=== PATIENT | male | born 1945 | race Hispanic/Latino ===

== ENCOUNTER 2018-04-23 01:52 | Emergency (ER) | payer MEDICARE ==
[2018-04-23 03:09] LABS: BASOPHILS % (AUTO) 0.4 % (0.0-5.0); EOSINOPHILS % (AUTO) 3.7 % (0.0-8.0); HEMATOCRIT 43.6 % (42-54); LYMPHOCYTES % (AUTO) 13.4 % (21.0-51.0); MEAN CORPUSCULAR HEMOGLOBIN 31.8 pg (27.0-33.0); MEAN CORPUSCULAR HGB CONC 33.8 g/dL (32.0-36.0); MONOCYTES % (AUTO) 7.2 % (3.0-13.0); NEUTROPHILS % (AUTO) 75.3 % (40.0-77.0); PLATELET COUNT (AUTO) 124 K/uL (130-400); RED BLOOD CELL COUNT(AUTO) 4.64 MIL/uL (4.50-6.20); RED CELL DISTRIBUTION WIDTH 12.9 % (11.0-15.5); WHITE BLOOD COUNT (AUTO) 7.5 K/uL (4.8-10.8)
[2018-04-23 03:16] LABS: CREATININE 0.9 mg/dL (0.5-1.5); POTASSIUM 3.9 mmol/L (3.5-5.1)
[2018-04-23 03:21] LABS: ALBUMIN 3.8 g/dL (3.5-5.0); TOTAL PROTEIN, SERUM 7.4 g/dL (6.0-8.3)
[2018-04-23] MEDS ORDERED: IPRATROPIUM/ALBUTEROL SULFATE 3 ML SOLUTION IH ONE (03:38)
[2018-04-23] MEDS ORDERED: METRONIDAZOLE 500 MG TABLET ONE (04:16)
== END 2018-04-23 04:49 | disposition home or self-care (01) ==
LOC: EDH 01:52
DX: J20.9 Acute bronchitis, unspecified (principal); I10 Essential (primary) hypertension; E11.9 Type 2 diabetes mellitus without complications
CPT/HCPCS: 36415; 71046; 80053; 85025; 87804; 94640

== ENCOUNTER 2018-07-02 22:36 | Emergency (ER) | payer MEDICARE ==
[2018-07-02 23:17] LABS: BASOPHILS % (AUTO) 0.7 % (0.0-5.0); HEMATOCRIT 44.2 % (42-54); LYMPHOCYTES % (AUTO) 34.5 % (21.0-51.0); MEAN CORPUSCULAR VOLUME 94.3 fL (79-99); MONOCYTES % (AUTO) 9.3 % (3.0-13.0); NEUTROPHILS % (AUTO) 51.5 % (40.0-77.0); PLATELET COUNT (AUTO) 166 K/uL (130-400); RED BLOOD CELL COUNT(AUTO) 4.69 MIL/uL (4.50-6.20); RED CELL DISTRIBUTION WIDTH 13.5 % (11.0-15.5); WHITE BLOOD COUNT (AUTO) 7.1 K/uL (4.8-10.8)
[2018-07-02] MEDS ORDERED: IPRATROPIUM/ALBUTEROL SULFATE 3 ML SOLUTION IH ONE (23:28)
[2018-07-02 23:29] LABS: CREATININE 0.9 mg/dL (0.5-1.5); POTASSIUM 3.8 mmol/L (3.5-5.1)
[2018-07-02 23:30] LABS: INR 0.96 (0.85-1.15); PARTIAL THROMBOPLASTIN TIME 27.1 SEC (26.3-35.5); PROTHROMBIN TIME 10.1 SEC (9.6-11.6)
[2018-07-02] MEDS ORDERED: DIPHENHYDRAMINE HCL 25 MG CAPSULE ONE (23:30)
[2018-07-02] MEDS ORDERED: BENZONATATE 100 MG CAPSULE PO ONE (23:30)
[2018-07-02] MEDS ORDERED: METHYLPREDNISOLONE SOD SUCC 40MG/ML 1ML ONE (23:30)
[2018-07-02 23:33] LABS: ALBUMIN 3.7 g/dL (3.5-5.0); BILIRUBIN,TOTAL 0.7 mg/dL (0.2-1.0); TOTAL PROTEIN, SERUM 7.3 g/dL (6.0-8.3)
[2018-07-02] MEDS ORDERED: DiphenhydrAMINE HCL 25 MG/10 ML ELIXIR UDCUP ONE (23:33)
[2018-07-02 23:39] LABS: B-TYPE NATRIURETIC PEPTIDE 13 pg/mL (0-100)
== END 2018-07-03 02:00 | disposition home or self-care (01) ==
LOC: EDH 22:36
DX: J20.9 Acute bronchitis, unspecified (principal); E11.9 Type 2 diabetes mellitus without complications; I10 Essential (primary) hypertension; J44.9 Chronic obstructive pulmonary disease, unspecified; Z87.891 Personal history of nicotine dependence; Z88.1 Allergy status to other antibiotic agents; Z88.8 Allergy status to other drugs, medicaments and biological substances
CPT/HCPCS: 36415; 71045; 80053; 82550; 83880; 84484; 85025; 85610; 85730; 93005; 94640; 96374; 99284; J2920; Q0163

== ENCOUNTER 2021-08-11 19:56 | Emergency (ER) | payer MEDICARE ==
[~2021-08-11] VITALS: Ht 170.2 cm; Wt 88.9 kg
[2021-08-11] MEDS ORDERED: ACETAMINOPHEN 500 MG TABLET ONE (22:53)
[2021-08-11] MEDS ORDERED: ALBUTEROL 0.083% 2.5 MG/3 ML INH IH ONE ×2 (23:30)
[2021-08-11] MEDS ORDERED: IPRATROPIUM/ALBUTEROL SULFATE 3 ML SOLUTION IH ONE (23:30)
[2021-08-11] MEDS ORDERED: PREDNISONE 20 MG TABLET PO ONE (23:30)
[2021-08-11 23:54] LABS: BASOPHILS % (AUTO) 0.4 % (0.0-5.0); EOSINOPHILS % (AUTO) 0.8 % (0.0-8.0); HEMATOCRIT 41.2 % (42-54); LYMPHOCYTES % (AUTO) 16.3 % (21.0-51.0); MEAN CORPUSCULAR HEMOGLOBIN 31.2 pg (27.0-33.0); MEAN CORPUSCULAR VOLUME 91.8 fL (79-99); MONOCYTES % (AUTO) 13.5 % (3.0-13.0); NEUTROPHILS % (AUTO) 68.6 % (40.0-77.0); PLATELET COUNT (AUTO) 121 K/uL (130-400); RED BLOOD CELL COUNT(AUTO) 4.49 MIL/uL (4.50-6.20); RED CELL DISTRIBUTION WIDTH 12.6 % (11.0-15.5)
[2021-08-12] MEDS ORDERED: AZITHROMYCIN 500MG+NS 250ML IVPB ONE
[2021-08-12] MEDS ORDERED: CEFTRIAXONE 1G VIAL IVP ONE
[2021-08-12 00:09] LABS: CREATININE 1.1 mg/dL (0.5-1.5); POTASSIUM 3.8 mmol/L (3.5-5.1)
[2021-08-12 00:14] LABS: ALBUMIN 3.5 g/dL (3.5-5.0); BILIRUBIN,TOTAL 0.7 mg/dL (0.2-1.0); TOTAL PROTEIN, SERUM 6.6 g/dL (6.0-8.3)
[2021-08-12 00:31] LABS: B-TYPE NATRIURETIC PEPTIDE 36 pg/mL (0-100)
[2021-08-12] MEDS ORDERED: PRED20TA3 PO (01:04)
[2021-08-12] MEDS ORDERED: BENZ-39 PO (01:04)
[2021-08-12] MEDS ORDERED: ALBU2.5V2 IH (01:04)
[2021-08-12] MEDS ORDERED: AZIT250T9 PO (01:04)
[2021-08-12] MEDS ORDERED: ALBU8.5H8 IH (01:04)
[2021-08-12 01:33] VITALS: BP 137/85
== END 2021-08-12 01:37 | disposition home or self-care (01) ==
LOC: EDH 19:56
DX: J44.1 Chronic obstructive pulmonary disease with (acute) exacerbation (principal); J10.1 Influenza due to other identified influenza virus with other respiratory manifestations; Z20.822 Contact with and (suspected) exposure to COVID-19; E11.9 Type 2 diabetes mellitus without complications; I10 Essential (primary) hypertension; Z79.52 Long term (current) use of systemic steroids; Z87.891 Personal history of nicotine dependence; Z96.653 Presence of artificial knee joint, bilateral
CPT/HCPCS: 36415; 71045; 80053; 83880; 84484; 85025; 87635; 87804 ×2; 93005; 94640 ×3; 96365; 96375; 99285; C9803; J0456; J0696

== ENCOUNTER 2022-10-12 11:37 | Emergency (ER) | payer MEDICARE, OTHER ==
[~2022-10-12] VITALS: Ht 167.6 cm; Wt 86.2 kg
[~2022-10-12 11:37] MED LIST: ALBU2.5V2 IH; ALBU8.5H8 IH; AZIT250T9 PO; BENZ-39 PO; PRED20TA3 PO
[2022-10-12 11:42] VITALS: BP 145/81
[2022-10-12] MEDS ORDERED: CEFTRIAXONE 1G VIAL IM ONE (12:30)
[2022-10-12] MEDS ORDERED: CLIN-141 PO (12:34)
== END 2022-10-12 12:52 | disposition home or self-care (01) ==
LOC: EDH 11:37
DX: R22.0 Localized swelling, mass and lump, head (principal); J44.9 Chronic obstructive pulmonary disease, unspecified; E11.9 Type 2 diabetes mellitus without complications; I10 Essential (primary) hypertension; Z79.52 Long term (current) use of systemic steroids
CPT/HCPCS: 99283; 96372; J0696

== ENCOUNTER 2023-09-04 18:42 | Observation (INO) | payer OTHER ==
[~2023-09-04] VITALS: Ht 170.2 cm; Wt 86.7 kg
[~2023-09-04 18:42] MED LIST changes: +CLIN-141 PO
[2023-09-04] MEDS: ACETAMINOPHEN 500 MG TABLET ONE (19:33)
[2023-09-04] MEDS: ACETAMINOPHEN 500 MG TABLET PO ONE (19:33)
[2023-09-04 20:10] LABS: APPEARANCE,URINE TURBID (CLEAR); BILIRUBIN,URINE NEGATIVE (NEGATIVE); COLOR,URINE YELLOW (YELLOW); GLUCOSE, URINE (UA) 200 mg/dL (NEGATIVE); KETONES,URINE NEGATIVE (NEGATIVE); LEUKOCYTE ESTERASE ,URINE 500 Leu/uL (NEGATIVE); NITRATE,URINE NEGATIVE (NEGATIVE); OCCULT BLOOD,URINE LARGE (NEGATIVE); PH,URINE 5.5 (5.0-8.0); PROTEIN,URINE 70 mg/dL (NEGATIVE); UROBILINOGEN,URINE 0.2 mg/dL (0.2-1.0)
[2023-09-04 20:15] LABS: ADD UA MICROSCOPIC YES
[2023-09-04 20:19] LABS: BACTERIA,URINE FEW /HPF (None Seen); NON-SQUAMOUS EPITHELIAL CELL 9 /HPF (0-2); RBC,URINE 26-50 /HPF (0-1); WBC CLUMP RARE /HPF (0-1); WBC,URINE >100 /HPF (0-1)
[2023-09-04] MEDS ORDERED: MORPHINE 2 MG SYG IVP ONE (23:00)
[2023-09-04] MEDS: 0.9%NACL 1000ML 1,983 ML IV ONE (23:02)
[2023-09-04 23:11] LABS: BASOPHILS # (AUTO) 0.03 K/uL (0.00-0.20); BASOPHILS % (AUTO) 0.3 % (0.0-5.0); EOSINOPHILS % (AUTO) 0.8 % (0.0-8.0); HEMATOCRIT 44.4 % (42-54); IMMATURE GRANULOCYTE ABSOLUTE 0.04 K/uL (0-1); LYMPHOCYTES # (AUTO) 2.1 K/uL (1.0-4.8); LYMPHOCYTES % (AUTO) 17.4 % (21.0-51.0); MEAN CORPUSCULAR HEMOGLOBIN 32.6 pg (27.0-33.0); MEAN CORPUSCULAR HGB CONC 35.4 g/dL (32.0-36.0); MEAN CORPUSCULAR VOLUME 92.3 fL (79-99); MONOCYTES # (AUTO) 1.2 K/uL (0.1-1.0); MONOCYTES % (AUTO) 10.3 % (3.0-13.0); NEUTROPHILS # (AUTO) 8.5 K/uL (1.8-7.7); NEUTROPHILS % (AUTO) 70.9 % (40.0-77.0); PLATELET COUNT (AUTO) 186 K/uL (130-400); RED BLOOD CELL COUNT(AUTO) 4.81 MIL/uL (4.50-6.20); RED CELL DISTRIBUTION WIDTH 12.4 % (11.0-15.5); WHITE BLOOD COUNT (AUTO) 11.9 K/uL (4.8-10.8)
[2023-09-04 23:23] LABS: SARS-CoV-2, RNA, NAAT NEGATIVE SARS CoV-2 (NEGATIVE)
[2023-09-04 23:25] LABS: INR <= 0.93 (0.85-1.15); PROTHROMBIN TIME 10.8 SEC (9.6-11.6)
[2023-09-04 23:27] LABS: INFLUENZA TYPE A Negative For Type A (NEGATIVE); INFLUENZA TYPE B Negative For Type B (NEGATIVE); PARTIAL THROMBOPLASTIN TIME 29.1 SEC (26.3-35.5)
[2023-09-04 23:29] LABS: ALBUMIN 3.5 g/dL (3.5-5.0); BILIRUBIN,TOTAL 0.9 mg/dL (0.2-1.0); CREATININE 1.3 mg/dL (0.5-1.3); POTASSIUM 3.8 mmol/L (3.5-5.1); TOTAL PROTEIN, SERUM 7.7 g/dL (6.0-8.3)
[2023-09-04 23:54] LABS: B-TYPE NATRIURETIC PEPTIDE 8 pg/mL (0-100)
[2023-09-05 01:31] VITALS: TEMP 97.9
[2023-09-05] MEDS: CEFTRIAXONE 1G VIAL IVPB ONE (02:57)
[2023-09-05] MEDS ORDERED: KCL 20 MEQ ERTAB PO PRN (03:30)
[2023-09-05] MEDS ORDERED: DEXTROSE 50%-WATER 50 ML DISP.SYRIN IV PRN (03:30)
[2023-09-05] MEDS ORDERED: ACETAMINOPHEN 325 MG TAB PO PRN ×2 (03:30)
[2023-09-05] MEDS ORDERED: ONDANSETRON 4MG INJ IV PRN (03:30)
[2023-09-05] MEDS ORDERED: POTASSIUM CHLORIDE 10% ELIXIR 20 MEQ/15 ML UDCUP PO PRN (03:30)
[2023-09-05] MEDS ORDERED: GLUCAGON 1MG KIT 1 MG ML IM PRN (03:30)
[2023-09-05] MEDS ORDERED: POTASSIUM CHLORIDE 20MEQ/100ML 100 ML IV PRN (03:30)
[2023-09-05] MEDS ORDERED: MAGNESIUM 2GM PREMIX 50ML 50 ML IV PRN (03:30)
[2023-09-05 03:48] VITALS: O2SAT 98
[2023-09-05] MEDS: 0.9%NACL 1000ML 1,000 ML IV SCH (04:24)
[2023-09-05 04:37] VITALS: BP 153/92; PULSE 83; RESP 20
[2023-09-05 04:38] LABS: BASOPHILS # (AUTO) 0.01 K/uL (0.00-0.20); BASOPHILS % (AUTO) 0.1 % (0.0-5.0); EOSINOPHILS # (AUTO) 0.11 K/uL (0.00-0.70); EOSINOPHILS % (AUTO) 1.2 % (0.0-8.0); HEMATOCRIT 38.4 % (42-54); IMMATURE GRANULOCYTE ABSOLUTE 0.03 K/uL (0-1); LYMPHOCYTES # (AUTO) 1.4 K/uL (1.0-4.8); LYMPHOCYTES % (AUTO) 15.2 % (21.0-51.0); MEAN CORPUSCULAR HEMOGLOBIN 31.8 pg (27.0-33.0); MEAN CORPUSCULAR HGB CONC 34.9 g/dL (32.0-36.0); MEAN CORPUSCULAR VOLUME 91.2 fL (79-99); MONOCYTES # (AUTO) 1.2 K/uL (0.1-1.0); MONOCYTES % (AUTO) 13.4 % (3.0-13.0); NEUTROPHILS # (AUTO) 6.2 K/uL (1.8-7.7); NEUTROPHILS % (AUTO) 69.8 % (40.0-77.0); PLATELET COUNT (AUTO) 165 K/uL (130-400); RED BLOOD CELL COUNT(AUTO) 4.21 MIL/uL (4.50-6.20); RED CELL DISTRIBUTION WIDTH 12.5 % (11.0-15.5)
[2023-09-05 05:06] LABS: ALBUMIN 2.9 g/dL (3.5-5.0); BILIRUBIN,TOTAL 0.4 mg/dL (0.2-1.0); CREATININE 1.2 mg/dL (0.5-1.3); POTASSIUM 3.8 mmol/L (3.5-5.1); THYROID STIMULATING HORMONE 2.7 uIU/mL (0.36-3.74); TOTAL PROTEIN, SERUM 6.6 g/dL (6.0-8.3)
[2023-09-05] MEDS ORDERED: IBUP200C5 PO (06:12)
[2023-09-05] MEDS ORDERED: METF-446 PO (06:12)
[2023-09-05] MEDS ORDERED: LISI1TAB51 PO (06:12)
[2023-09-05] MEDS ORDERED: [UNRECOGNIZED DRUG - OTHER] (06:12)
[2023-09-05] MEDS ORDERED: MILK175C5 PO (06:12)
[2023-09-05] MEDS ORDERED: METF-444 PO (06:34)
[2023-09-05] MEDS ORDERED: INSULIN HUMULIN R 100 UNIT/ML 3ML SQ SCH (07:30)
[2023-09-05] MEDS ORDERED: CEFTRIAXONE 1G VIAL 1 GM in 0.9%NACL 50ML 50 ML IV SCH (09:00)
[2023-09-05] MEDS ORDERED: LISINOPRIL 20 MG TABLET PO SCH (09:00)
[2023-09-05] MEDS ORDERED: HYDROCHLOROTHIAZIDE 25 MG TABLET PO SCH (09:00)
[2023-09-05] MEDS ORDERED: NON-FORMULARY MEDICATION 1 EACH (Lisinopril/Hydrochlorothiazide (Lisinopril-Hctz 20-12.5 m PO SCH (09:00)
[2023-09-05] MEDS ORDERED: FAMOTIDINE 20MG TAB PO SCH (09:00)
[2023-09-05] MEDS ORDERED: CEFTRIAXONE 1G VIAL IVPB SCH (15:00)
== END 2023-09-05 07:20 | disposition left against medical advice (07) ==
LOC: EDH 18:42 → EDHIP 09-05 03:19 → 3BH 09-05 04:28
PROVIDERS: ADMIT Hospitalist; ATTEND Hospitalist
DX: A41.9 Sepsis, unspecified organism (principal); Z20.822 Contact with and (suspected) exposure to COVID-19; N39.0 Urinary tract infection, site not specified; R65.11 Systemic inflammatory response syndrome (SIRS) of non-infectious origin with acute organ dysfunction; E87.1 Hypo-osmolality and hyponatremia; E11.65 Type 2 diabetes mellitus with hyperglycemia; E66.9 Obesity, unspecified; J44.9 Chronic obstructive pulmonary disease, unspecified; I10 Essential (primary) hypertension; Z68.29 Body mass index [BMI] 29.0-29.9, adult; Z87.891 Personal history of nicotine dependence; Z88.5 Allergy status to narcotic agent
CPT/HCPCS: 96361 ×3; 99285; 82550; 84484; 80053 ×2; 83880; 85025 ×2; 85610; 85730; 87040 ×2; 87088; 87804 ×2; 83605; 81001; 36415 ×2; 87635; 84145; 96365; 84443; 83735; 82948; 71045; 70450; G0378 ×4; J0696; J1815